=== PATIENT | female | born 1940 | race Caucasian/White ===

== ENCOUNTER → 2019-12-19 09:14 | Outpatient (BNVA) | payer MEDICARE, OTHER, SELFPAY | PROVIDERS: Family Provider Family Medicine; PCP Family Medicine; Visit Provider Otolaryngology | DX: C44.90 Unspecified malignant neoplasm of skin, unspecified (principal); J34.89 Other specified disorders of nose and nasal sinuses | CPT/HCPCS: 99204; 99214 ==

== ENCOUNTER 2020-08-26 13:02 | Outpatient (CLI) | payer MEDICARE, OTHER, SELFPAY ==
--- NOTE | 2020-08-26 14:15 | USCV_ITS ---
ClydeValencia michaels Age: 80 Gender: F : 1940 Exam Date: 08/26/2020 13:15 Ordering Phys: Allan Molina MD (Andy) ([email or web address] [email or web address]) Technologist: Brayden Pavon [place] [facility] [place]: [place] Risk Factors: Previous Vascular Surgery: Right Brachial BP: / Left Brachial BP: / Right Left Velocity (cm/s) Spectral Plaque Velocity (cm/s) Spectral Plaque Syst/Diast Broadening Syst/Diast Broadening 85.90/ 11.60 Prox CCA 99.40 / 13.20 89.30/ 13.20 Mid CCA 113.40/ 20.20 69.50/ 15.40 Distal CCA 73.50 / 12.80 73.80/ 19.70 Prox ICA 111.30/ 25.20 100.30/24.90 Mid ICA 153.00/ 35.20 61.80/ 25.70 Distal ICA 134.10/ 27.10 203.60 ECA 85.30 1.12 ICA/CCA 1.35 Antegrade Vertebral Antegrade 43.70/ 6.90 cm/s 98.90/ 23.00 cm/s Tri Subclavian Bi 120.2 119.1 0 0 FINDINGS Comparison: none available. Diffuse bilateral scattered calcified plaque and intimal thickening throughout the common carotid arteries and extending through the bifurcation. Mild elevation of velocities and irregualar plaque in the bifurcations. Antegrade vertebral arteries. CONCLUSIONS Bilateral ICA stenosis less than 50%. Mild atherosclerosis most significant at the bifurcation. Dr. Angelic Nunez DO (Electronically Signed) Final Date: 26 August 2020 14:29 S
== END 2020-08-26 13:03 | disposition home or self-care (01) ==
LOC: RAD 13:04
PROVIDERS: PCP Family Medicine; Visit Provider Thoracic Surgery (Cardiothoracic Vascular Surgery)
DX: G45.9 Transient cerebral ischemic attack, unspecified (principal); I70.90 Unspecified atherosclerosis
CPT/HCPCS: 93880

== ENCOUNTER → 2020-12-05 10:30 | Outpatient (BNVA) | payer MEDICARE, OTHER, SELFPAY | PROVIDERS: PCP Family Medicine; Visit Provider Family Medicine | DX: E11.9 Type 2 diabetes mellitus without complications (principal); I10 Essential (primary) hypertension | CPT/HCPCS: 80053; 81015; 82043; 83036; 85025 ==

== ENCOUNTER → 2021-01-02 09:43 | Outpatient (BNVA) | payer MEDICARE, OTHER, SELFPAY | PROVIDERS: PCP Family Medicine; Visit Provider Family Medicine | DX: E78.5 Hyperlipidemia, unspecified (principal) | CPT/HCPCS: 80061 ==

== ENCOUNTER → 2021-01-30 09:03 | Outpatient (BNVA) | payer MEDICARE, OTHER, SELFPAY | PROVIDERS: PCP Family Medicine; Visit Provider Family Medicine | DX: E11.22 Type 2 diabetes mellitus with diabetic chronic kidney disease (principal) | CPT/HCPCS: 80048 ==

== ENCOUNTER → 2021-05-08 08:40 | Outpatient (BNVA) | payer MEDICARE, OTHER, SELFPAY | PROVIDERS: PCP Family Medicine; Visit Provider Family Medicine | DX: E11.22 Type 2 diabetes mellitus with diabetic chronic kidney disease (principal); N18.4 Chronic kidney disease, stage 4 (severe) | CPT/HCPCS: 80053; 83036 ==

== ENCOUNTER → 2021-08-07 09:08 | Outpatient (BNVA) | payer MEDICARE, OTHER, SELFPAY | PROVIDERS: PCP Family Medicine; Visit Provider Family Medicine | DX: E11.22 Type 2 diabetes mellitus with diabetic chronic kidney disease (principal); I12.9 Hypertensive chronic kidney disease with stage 1 through stage 4 chronic kidney disease, or unspecified chronic kidney disease; N18.4 Chronic kidney disease, stage 4 (severe); E78.5 Hyperlipidemia, unspecified; K21.9 Gastro-esophageal reflux disease without esophagitis | CPT/HCPCS: 80053; 83036 ==

== ENCOUNTER 2021-12-03 10:17 | Emergency (ER) | payer MEDICARE, OTHER, SELFPAY ==
[2021-12-03 10:38] VITALS: BP 165/79; PULSE 72; RESP 16; TEMP 36.6; O2SAT 97; BMI 26.5
[2021-12-03 10:44] VITALS: BP 179/74; PULSE 68; RESP 16; O2SAT 100
--- NOTE | 2021-12-03 11:04 | CT_ITS ---
WS: [id number] CT CERVICAL SPINE HISTORY: fall TECHNIQUE: Contiguous 2.5 mm axial imaging performed through the entire cervical spine. Sagittal and coronal reformats also performed. All CT scans at [facility] use at least one of these dose o ptimization techniques: automated exposure control; mA and/or kV adjustment per patient size (include s targeted exams where dose is matched to clinical indication); or iterative reconstruction. DLP: 365.26 mGy.cm COMPARISON: None available. Mild straightening and curvature of the normal cervical lordosis. Moderate degenerative disc space na rrowing and desiccation at C5-6 and C6-7. Facet joints are narrowed. There is bony fusion across the RIGHT C2-3 facet joint. Craniocervical junction is normal. The odontoid process is intact. No acute fractures. C2-C3: Normal. C3-C4: Central disc protrusion and mild facet arthritis. C4-C5: Mild osteophytic ridging and mild bilateral foraminal narrowing. C5-C6: Mild osteophytic ridging encroaching upon the ventral thecal sac on the LEFT. Mild bilateral f oraminal narrowing, LEFT greater than RIGHT. C6-C7: Osteophytic ridging encroaching upon the ventral thecal sac with mild foraminal stenosis. C7-T1: Normal. Lung apices are clear. Moderate calcification in the cervical carotid arteries. Suspect component of cervical carotid artery stenosis due to the calcified plaque. Additional increased plaque formation a t the origin of the RIGHT subclavian artery. CT/CT cervical spin wo con* [id number] IMPRESSION: 1. No acute cervical spine fracture. 2. Multilevel areas of foraminal stenosis predominantly due to osteophyte dise ase. 3. Heavy calcific burden in the cervical carotid arteries and involving the pr oximal RIGHT subclavian artery. Recommend follow-up carotid ultrasound evaluati on on an outpatient basis.
--- NOTE | 2021-12-03 11:04 | XR_ITS ---
WS: [email or web address] Exam: XR ribs LT mn 3V w CXR1V [id number] Date/Time of Exam: 12/03/2021 11:37 AM Reason For Exam: fall No acute left rib fracture or pneumothorax. No pleural or pulmonary reactive changes. The lungs are b ilaterally clear. Normal cardiomediastinal silhouette. XR/XR ribs LT mn 3V w CXR1V [id number] IMPRESSION: 1. No acute left rib fracture or pneumothorax.
--- NOTE | 2021-12-03 11:04 | CT_ITS ---
WS: [id number] CT HEAD NONCONTRAST HISTORY: syncope, fall TECHNIQUE: Contiguous axial imaging performed through the brain in 2.5 mm imaging. Bone and soft tiss ue windows. Sagittal and coronal reformats reviewed. All CT scans at [facility] use at least one of these dose optimization techniques: automated exposure control; mA and/or kV adjustment per pa tient size (includes targeted exams where dose is matched to clinical indication); or iterative recon struction. DLP: 836.83 mGy.cm COMPARISON: 03/13/2011 No acute intracranial hemorrhage, midline shift or mass effect. Mild bifrontal atrophy. Very minimal chronic microvascular ischemic type changes. There are a few cor tical calcifications scattered throughout the brain which are probably related to aging. No mass effe ct. Ventricles: Normal size with no hydrocephalus. No inferior displacement of the cerebellar tonsils. Paranasal sinuses: As visualized are clear. Mastoid air cells: Well pneumatized. Calvarium and scalp: Hyperostosis frontalis interna. No skull fracture. Small scalp hematoma towards the vertex. CT/CT head wo con* [id number] IMPRESSION: 1. No acute intracranial hemorrhage or edema. 2. Mild bifrontal atrophy.
--- NOTE | 2021-12-03 11:05 | ED_ITS ---
Documented by User: TAWANDA Green 12/03/21 13:34 HPI - Syncope General: Chief Complaint: Syncope Stated Complaint: random passing out hit head. Time Seen by Provider: 12/03/21 10:19 Source: patient and family Mode of arrival: wheelchair Limitations: no limitations History of Present Illness: Patient is a nice 81-year-old female presents to ED today along with her for evaluation following a syncopal episode. Patient has had these episodes starting roughly around July 2020. She has seen cardiology several times for these. She has had carotid US performed which showed stenosis of less than 50%. Patient states her episodes do not seem to be related to changes in position or exertion. She states loss of consciousness is usually for a few seconds. She states this morning blood sugars were 114. Blood pressure was 169/51. Patient states she does not get lightheaded or dizzy prior to her syncopal episodes. She does not experience chest pain, shortness of breath, or palpitations. Patient states during her syncopal episode today she struck the back of her head and her left ribs and would like these evaluated today. She tells me cardiology at one point talk to her about a stress test/echocardiogram but states these have not been completed yet. MD complaint: loss of consciousness Onset (ago): hour(s) Duration of episode: 10 -: second(s) Prodromal symptoms: none Witnessed: Yes - by Bystander () Context: at rest Associated symptoms: Reports no associated symptoms, chest pain (L posterior rib pain) and headache(s); Deny abdominal pain, fever(s), lightheadedness, nausea or vertigo Treatments prior to arrival: none Review of Systems Const: Denies: fever(s), chills, body aches, fatigue or malaise Eyes: Denies: change in vision or blurry vision Card: Reports: chest pain (L posterior rib pain), syncope and pre-syncope; Denies: palpitations, irregular heart rhythm, edema, swelling of feet/ankles, lightheadedness, dyspnea on exertion, orthopnea, leg pain with exertion or acrocyanosis Resp: Denies: dyspnea, productive cough, non-productive cough, wheezing, pain on inspiration, hemoptysis or chest congestion GI: Denies: abdominal pain, nausea, vomiting, heartburn or diarrhea : Denies: flank pain or dysuria Musc: Denies: neck pain, back pain, extremity pain or joint pain Skin/Breast: Denies: rash Neuro: Reports: headache(s); Denies: numbness in extremities, sensory changes, dizziness, vertigo, confusion, behavioral changes, Slurred speech present or difficulty communicating thoughts PFSH ED PFSH: Medical History CKD (chronic kidney disease), stage IV Coronary artery disease Dyslipidemia Essential hypertension GERD (gastroesophageal reflux disease) Nasal lesion Shortness of breath Type 2 diabetes mellitus, without long-term current use of insulin Surgical History H/O eye surgery H/O heart artery stent H/O tubal ligation Family History Other Arthritis CAD (coronary artery disease) Diabetes Social History Smoking and tobacco status: never smoked Alcohol intake: never Physical Exam Const: COMMON NORMALS: no acute distress, average body habitus, patient oriented x3, no limitations, healthy appearing, alert and well nourished GENERAL APPEARANCE: cooperative ORIENTATION/CONSCIOUSNESS: Yes awake, Yes oriented to person, Yes oriented to place and Yes oriented to time HENMT: COMMON NORMALS: normocephalic HEAD & SCALP: normal to inspection, normocephalic and hematoma vertex FACE & SINUS: normal facial exam Eye: GENERAL EYE: appearance normal, both eyes and all related structures Neck/C-Spine: COMMON NORMALS: full ROM CERVICAL SPINE: Yes cervical ROM normal, No Cervical spine tenderness, No step off deformity and Yes Paracervical muscle tenderness left Chest: COMMONS NORMALS: normal inspection of the chest OTHER: mild TTP L posterior ribs; no crepitus noted Resp: COMMON NORMALS: normal respiratory effort and clear to auscultation bilaterally AUSCULTATION: clear to auscultation bilaterally Cardio: COMMON NORMALS: regular rate and regular rhythm RATE: regular rate RHYTHM: regular rhythm GI: COMMON NORMALS: Normal to inspection, nondistended, normoactive bowel benito nds present, Soft to palpation, non-tender, No hepatosplenomegaly present and no masses PALPATION: Yes Soft to palpation and Yes No hepatosplenomegaly present Back/Pelvis: COMMON NORMALS: thoracic and lumbar spine normal to inspection, no thoracic nor lumbar tenderness and thoraco-lumbar ROM normal Extremity: COMMON NORMALS: normal to inspection and full ROM GENERAL: Yes normal exam except as noted Neuro: ISIDORO COMA SCALE: document GCS findings [place] coma scale eye opening: Spontaneous [place] coma scale verbal response: Orientated [place] coma scale motor response: Obey commands Isidoro coma scale total score: 15 COMMON NORMALS: patient oriented x3, CN's II-XII intact bilaterally, moves all extremities, no focal motor deficits, no sensory deficits noted and gait normal SENSORIUM/ORIENTATION: Yes alert, Yes oriented to person, Yes oriented to place and Yes oriented to time MOTOR EXAM: 5/5 motor strength present throughout Skin: COMMON NORMALS: no rashes or lesions noted GENERAL SKIN EXAM: no rashes or lesions noted TRAUMA: no lacerations or abrasions Course Vital Signs: Vital signs: Vital Signs Temperature 97.9 F 12/03/21 10:38 Pulse Rate 67 12/03/21 13:34 Respiratory Rate 18 12/03/21 13:34 Blood Pressure 168/79 12/03/21 13:34 Pulse Oximetry 95 12/03/21 13:34 MDM - Syncope Medical Decision Making Patient is a nice 81-year-old female who presents to ED today for evaluation following an episode of syncope. Patient has had multiple episodes of syncope starting back in July 2020. Her symptoms are not preceded by lightheadedness or dizziness nor does she ever experience chest pain, shortness of breath, or palpitations. Patient states she struck her head and her left ribs on her fall today. Imaging of these areas are negative. Radiologist did comment on heavy calcific burden in her cervical carotid arteries on her CT cervical scan. Patient had US carotids last performed 08/2020 that showed stenosis of less than 50%. Patient's vital signs are normal here. Labs are unremarkable. Mild elevations to her BUN/Cr that are chronic. She had a baseline troponin of 16 with a negative delta. EKG without ischemic changes or arrhythmia. UA got reported as gross hematuria however this was a confirmed mixup with lab. Patient states her urine has been normal/clear and she has no urinary complaints at this time. She was able to give another urine sample but does not want to wait for results. It is currently sleeting/icing outside and she wants to get home. I told patient I would call her if repeat results come back abnormal. Will place information with case management to get her set up with an appointment with Dr. Molina to order repeat carotid US if indicated/necessary. Strict return to ED precautions verbally given to patient and her . Lab Data : 12/03/21 11:08 12/03/21 11:08 Radiology Impressions Cervical Spine CT 12/03/21 11:04 IMPRESSION: 1. No acute cervical spine fracture. 2. Multilevel areas of foraminal stenosis predominantly due to osteophyte disease. 3. Heavy calcific burden in the cervical carotid arteries and involving the proximal RIGHT subclavian artery. Recommend follow-up carotid ultrasound evaluation on an outpatient basis. Head CT 12/03/21 11:04 IMPRESSION: 1. No acute intracranial hemorrhage or edema. 2. Mild bifrontal atrophy. Ribs X-Ray 12/03/21 11:04 IMPRESSION: 1. No acute left rib fracture or pneumothorax. Laboratory Results WBC 10.6 10^3/uL (4.0-10.0) H 12/03/21 11:08 RBC 4.30 10^6/uL (4.1-5.3) 12/03/21 11:08 Hgb 12.7 g/dL (11.5-15.3) 12/03/21 11:08 Hct 38.8 % (37.0-47.0) 12/03/21 11:08 MCV 90.2 fl (81-99) 12/03/21 11:08 MCH 29.5 pg (28.0-34.0) 12/03/21 11:08 MCHC 32.7 g/dL (30.0-36.0) 12/03/21 11:08 RDW 12.8 % (12.1-15.1) 12/03/21 11:08 Plt Count 247 10^3/cmm (130-400) 12/03/21 11:08 MPV 9.3 fL (7.4-10.4) 12/03/21 11:08 Neut % (Auto) 73.5 % 12/03/21 11:08 Lymph % (Auto) 20.2 % 12/03/21 11:08 [place] % (Auto) 5.2 % 12/03/21 11:08 Eos % (Auto) 0.4 % 12/03/21 11:08 Baso % (Auto) 0.3 % 12/03/21 11:08 Neut # (Auto) 7.82 10^3/uL (1.8-7.7) H 12/03/21 11:08 Lymph # (Auto) 2.2 10^3/uL (0.8-4.8) 12/03/21 11:08 [place] # (Auto) 0.6 10^3/uL (0.2-0.9) 12/03/21 11:08 Eos # (Auto) 0.0 10^3/uL (0.0-0.8) 12/03/21 11:08 Baso # (Auto) 0.0 10^3/uL (0.0-0.1) 12/03/21 11:08 Nucleated RBC % (auto) 0 % 12/03/21 11:08 Nucleated RBCs # 0.0 /100WBC 12/03/21 11:08 Sodium 139 mmol/L (136-145) 12/03/21 11:08 Potassium 4.4 mmol/L (3.5-5.1) 12/03/21 11:08 Chloride 104 mmol/L (98-107) 12/03/21 11:08 Carbon Dioxide 24 mmol/L (22-29) 12/03/21 11:08 Anion Gap 15.4 (5-19) 12/03/21 11:08 BUN 40 mg/dL (8-23) H 12/03/21 11:08 Creatinine 1.4 mg/dL (0.5-0.9) H 12/03/21 11:08 GFR Calculation Not Reportable 12/03/21 11:08 Glucose 154 mg/dL (65-115) H 12/03/21 11:08 Calculated Osmolality 301 mOsm/kg (285-295) H 12/03/21 11:08 Calcium 10.0 mg/dL (8.5-10.5) 12/03/21 11:08 Total Bilirubin 0.4 mg/dL (0.15-1.2) 12/03/21 11:08 AST 28 U/L (0-32) 12/03/21 11:08 ALT 26 U/L (0-33) 12/03/21 11:08 Alkaline Phosphatase 91 IU/L (35-105) 12/03/21 11:08 Troponin T Baseline 16 ng/L (0-10) H 12/03/21 11:08 Troponin T 120 Minute 14.87 ng/L (0-10) H 12/03/21 12:51 Delta Troponin T -1.13 ABS# (0-10) L 12/03/21 12:51 Total Protein 8.2 g/dL (6.6-8.7) 12/03/21 11:08 Albumin 4.8 g/dL (3.5-5.2) 12/03/21 11:08 Globulin 3.4 g/dL (1.3-4.6) 12/03/21 11:08 Urine Color Yellow (Yellow) 12/03/21 12:15 Urine Appearance Clear (CLEAR) 12/03/21 12:15 Urine pH 5 (5-7) 12/03/21 12:15 Ur Specific [place] 1.010 (1.005-1.030) 12/03/21 12:15 Urine Protein Neg (Negative) 12/03/21 12:15 Urine Glucose (UA) Norm (Normal) 12/03/21 12:15 Urine Ketones Negative (Negative) 12/03/21 12:15 Urine Blood Neg (Negative) 12/03/21 12:15 Urine Nitrate Negative (Negative) 12/03/21 12:15 Urine Bilirubin Neg (Negative) 12/03/21 12:15 Urine Urobilinogen Neg mg/dL (Negative) 12/03/21 12:15 Ur Leukocyte Esterase Negative (Negative) 12/03/21 12:15 Urine RBC Cancelled 12/03/21 12:15 Urine WBC Cancelled 12/03/21 12:15 Ur Squamous Epith Cells Cancelled 12/03/21 12:15 Ur Transition Epith Cell Cancelled 12/03/21 12:15 Ur Renal Epithelial Cell Cancelled 12/03/21 12:15 Calcium Oxalate Crystal Cancelled 12/03/21 12:15 Uric Acid Crystals Cancelled 12/03/21 12:15 Triple Phos Crystals Cancelled 12/03/21 12:15 Other Crystals Cancelled 12/03/21 12:15 Amorphous Sediment Cancelled 12/03/21 12:15 Urine Bacteria Cancelled 12/03/21 12:15 Hyaline Casts Cancelled 12/03/21 12:15 Fine Granular Casts Cancelled 12/03/21 12:15 Coarse Granular Casts Cancelled 12/03/21 12:15 RBC Casts Cancelled 12/03/21 12:15 Other Casts Cancelled 12/03/21 12:15 Urine Mucus Cancelled 12/03/21 12:15 Urine Trichomonas Cancelled 12/03/21 12:15 Urine Yeast Cancelled 12/03/21 12:15 Urine Sperm Cancelled 12/03/21 12:15 Ur Oval Fat Bodies Cancelled 12/03/21 12:15 Discharge Plan Discharge Patient Disposition: Home Clinical Impression: Recurrent syncope Carotid artery calcification Qualifiers: Laterality: unspecified laterality Qualified Code(s): I65.29 - Occlusion and stenosis of unspecified carotid artery Hematoma of scalp Qualifiers: Encounter type: initial encounter Qualified Code(s): S00.03XA - Contusion of scalp, initial encounter Contusion of rib on left side Qualifiers: Encounter type: initial encounter Qualified Code(s): S20.212A - Contusion of le ft front wall of thorax, initial encounter Condition: Stable Prescriptions: No Action hydralazine 25 mg tablet 75 mg PO DIRECTED Qty: 270 1RF Rx Instructions: Take 50mg (2 tabs) in the AM and 25mg (1 tab) in PM metoprolol succinate 50 mg tablet extended release 24 hr See Rx Instructions .ROUTE .COMPLEX Qty: 90 1RF Dose Instruction: TAKE 1 TABLET BY MOUTH EVERY DAY Rx Instructions: TAKE 1 TABLET BY MOUTH EVERY DAY nifedipine 30 mg tablet extended release 30 mg PO DAILY Qty: 90 1RF isosorbide mononitrate 30 mg tablet extended release 24 hr 15 mg PO DAILY Qty: 45 0RF pantoprazole 40 mg tablet,delayed release (DR/EC) See Rx Instructions .ROUTE .COMPLEX Qty: 90 0RF Dose Instruction: TAKE 1 TABLET BY MOUTH EVERY DAY Rx Instructions: TAKE 1 TABLET BY MOUTH EVERY DAY simvastatin 40 mg tablet See Rx Instructions .ROUTE .COMPLEX Qty: 90 1RF Dose Instruction: TAKE 1 TABLET BY MOUTH EVERY DAY Rx Instructions: TAKE 1 TABLET BY MOUTH EVERY DAY Discharge Orders: Discharge ED (Routine); Ordered 12/03/21 Ordered By: Yazmin Mejia Referrals: Gilda Caicedo DO [Primary Care Provider] - Activity Restrictions/Additional Instructions: As we discussed case management should contact you in the next few days to set you up with an appointment with Dr. Molina to have a repeat carotid ultrasound performed. You need to return to the emergency department for chest pain, shortness of breath, difficulty breathing, palpitations, severe lightheadedness/dizziness, or further passing out episodes. Coding Level of Care Code ED Senior Sql Developer for Chg Fwd Exam Comprehensive Documented by User: Mauricio Rincon DO 12/03/21 15:58 HPI - Syncope General: Chief Complaint: Syncope Stated Complaint: random passing out hit head. Time Seen by Provider: 12/03/21 10:19 PFSH ED PFSH: Medical History CKD (chronic kidney disease), stage IV Coronary artery disease Dyslipidemia Essential hypertension GERD (gastroesophageal reflux disease) Nasal lesion Shortness of breath Type 2 diabetes mellitus, without long-term current use of insulin Surgical History H/O eye surgery H/O heart artery stent H/O tubal ligation Family History Other Arthritis CAD (coronary artery disease) Diabetes Social History Smoking and tobacco status: never smoked Alcohol intake: never Physical Exam Neuro: ISIDORO COMA SCALE: document GCS findings [place] coma scale total score: 15 Course Vital Signs: Vital signs: Vital Signs Temperature 97.9 F 12/03/21 10:38 Pulse Rate 67 12/03/21 13:34 Respiratory Rate 18 12/03/21 13:34 Blood Pressure 168/79 12/03/21 13:34 Pulse Oximetry 95 12/03/21 13:34 MDM - Syncope Medical Decision Making Patient is a nice 81-year-old female who presents to ED today for evaluation following an episode of syncope. Patient has had multiple episodes of syncope starting back in July 2020. Her symptoms are not preceded by lightheadedness or dizziness nor does she ever experience chest pain, shortness of breath, or palpitations. Patient states she struck her head and her left ribs on her fall today. Imaging of these areas are negative. Radiologist did comment on heavy calcific burden in her cervical carotid arteries on her CT cervical scan. Patient had US carotids last performed 08/2020 that showed stenosis of less than 50%. Patient's vital signs are normal here. Labs are unremarkable. Mild elevations to her BUN/Cr that are chronic. She had a baseline troponin of 16 with a negative delta. EKG without ischemic changes or arrhythmia. UA got reported as gross hematuria however this was a confirmed mixup with lab. Patient states her urine has been normal/clear and she has no urinary complaints at this time. She was able to give another urine sample but does not want to wait for results. It is currently sleeting/icing outside and she wants to get home. I told patient I would call her if repeat results come back abnormal. Will place information with case management to get her set up with an appointment with Dr. Molina to order repeat carotid US if indicated/necessary. Strict return to ED precautions verbally given to patient and her . Chart reviewed and patient discussed with midlevel. Agree with assessment and plan. Lab Data : 12/03/21 11:08 12/03/21 11:08 Radiology Impressions Cervical Spine CT 12/03/21 11:04 IMPRESSION: 1. No acute cervical spine fracture. 2. Multilevel areas of foraminal stenosis predominantly due to osteophyte disease. 3. Heavy calcific burden in the cervical carotid arteries and involving the proximal RIGHT subclavian artery. Recommend follow-up carotid ultrasound evaluation on an outpatient basis. Head CT 12/03/21 11:04 IMPRESSION: 1. No acute intracranial hemorrhage or edema. 2. Mild bifrontal atrophy. Ribs X-Ray 12/03/21 11:04 IMPRESSION: 1. No acute left rib fracture or pneumothorax. Laboratory Results WBC 10.6 10^3/uL (4.0-10.0) H 12/03/21 11:08 RBC 4.30 10^6/uL (4.1-5.3) 12/03/21 11:08 Hgb 12.7 g/dL (11.5-15.3) 12/03/21 11:08 Hct 38.8 % (37.0-47.0) 12/03/21 11:08 MCV 90.2 fl (81-99) 12/03/21 11:08 MCH 29.5 pg (28.0-34.0) 12/03/21 11:08 MCHC 32.7 g/dL (30.0-36.0) 12/03/21 11:08 RDW 12.8 % (12.1-15.1) 12/03/21 11:08 Plt Count 247 10^3/cmm (130-400) 12/03/21 11:08 MPV 9.3 fL (7.4-10.4) 12/03/21 11:08 Neut % (Auto) 73.5 % 12/03/21 11:08 Lymph % (Auto) 20.2 % 12/03/21 11:08 [place] % (Auto) 5.2 % 12/03/21 11:08 Eos % (Auto) 0.4 % 12/03/21 11:08 Baso % (Auto) 0.3 % 12/03/21 11:08 Neut # (Auto) 7.82 10^3/uL (1.8-7.7) H 12/03/21 11:08 Lymph # (Auto) 2.2 10^3/uL (0.8-4.8) 12/03/21 11:08 [place] # (Auto) 0.6 10^3/uL (0.2-0.9) 12/03/21 11:08 Eos # (Auto) 0.0 10^3/uL (0.0-0.8) 12/03/21 11:08 Baso # (Auto) 0.0 10^3/uL (0.0-0.1) 12/03/21 11:08 Nucleated RBC % (auto) 0 % 12/03/21 11:08 Nucleated RBCs # 0.0 /100WBC 12/03/21 11:08 Sodium 139 mmol/L (136-145) 12/03/21 11:08 Potassium 4.4 mmol/L (3.5-5.1) 12/03/21 11:08 Chloride 104 mmol/L (98-107) 12/03/21 11:08 Carbon Dioxide 24 mmol/L (22-29) 12/03/21 11:08 Anion Gap 15.4 (5-19) 12/03/21 11:08 BUN 40 mg/dL (8-23) H 12/03/21 11:08 Creatinine 1.4 mg/dL (0.5-0.9) H 12/03/21 11:08 GFR Calculation Not Reportable 12/03/21 11:08 Glucose 154 mg/dL (65-115) H 12/03/21 11:08 Calculated Osmolality 301 mOsm/kg (285-295) H 12/03/21 11:08 Calcium 10.0 mg/dL (8.5-10.5) 12/03/21 11:08 Total Bilirubin 0.4 mg/dL (0.15-1.2) 12/03/21 11:08 AST 28 U/L (0-32) 12/03/21 11:08 ALT 26 U/L (0-33) 12/03/21 11:08 Alkaline Phosphatase 91 IU/L (35-105) 12/03/21 11:08 Troponin T Baseline 16 ng/L (0-10) H 12/03/21 11:08 Troponin T 120 Minute 14.87 ng/L (0-10) H 12/03/21 12:51 Delta Troponin T -1.13 ABS# (0-10) L 12/03/21 12:51 Total Protein 8.2 g/dL (6.6-8.7) 12/03/21 11:08 Albumin 4.8 g/dL (3.5-5.2) 12/03/21 11:08 Globulin 3.4 g/dL (1.3-4.6) 12/03/21 11:08 Urine Color Yellow (Yellow) 12/03/21 12:15 Urine Appearance Clear (CLEAR) 12/03/21 12:15 Urine pH 5 (5-7) 12/03/21 12:15 Ur Specific [place] 1.010 (1.005-1.030) 12/03/21 12:15 Urine Protein Neg (Negative) 12/03/21 12:15 Urine Glucose (UA) Norm (Normal) 12/03/21 12:15 Urine Ketones Negative (Negative) 12/03/21 12:15 Urine Blood Neg (Negative) 12/03/21 12:15 Urine Nitrate Negative (Negative) 12/03/21 12:15 Urine Bilirubin Neg (Negative) 12/03/21 12:15 Urine Urobilinogen Neg mg/dL (Negative) 12/03/21 12:15 Ur Leukocyte Esterase Negative (Negative) 12/03/21 12:15 Urine RBC Cancelled 12/03/21 12:15 Urine WBC Cancelled 12/03/21 12:15 Ur Squamous Epith Cells Cancelled 12/03/21 12:15 Ur Transition Epith Cell Cancelled 12/03/21 12:15 Ur Renal Epithelial Cell Cancelled 12/03/21 12:15 Calcium Oxalate Crystal Cancelled 12/03/21 12:15 Uric Acid Crystals Cancelled 12/03/21 12:15 Triple Phos Crystals Cancelled 12/03/21 12:15 Other Crystals Cancelled 12/03/21 12:15 Amorphous Sediment Cancelled 12/03/21 12:15 Urine Bacteria Cancelled 12/03/21 12:15 Hyaline Casts Cancelled 12/03/21 12:15 Fine Granular Casts Cancelled 12/03/21 12:15 Coarse Granular Casts Cancelled 12/03/21 12:15 RBC Casts Cancelled 12/03/21 12:15 Other Casts Cancelled 12/03/21 12:15 Urine Mucus Cancelled 12/03/21 12:15 Urine Trichomonas Cancelled 12/03/21 12:15 Urine Yeast Cancelled 12/03/21 12:15 Urine Sperm Cancelled 12/03/21 12:15 Ur Oval Fat Bodies Cancelled 12/03/21 12:15 Discharge Plan Discharge Patient Disposition: Home Clinical Impression: Recurrent syncope Carotid artery calcification Qualifiers: Laterality: unspecified laterality Qualified Code(s): I65.29 - Occlusion and stenosis of unspecified carotid artery Hematoma of scalp Qualifiers: Encounter type: initial encounter Qualified Code(s): S00.03XA - Contusion of scalp, initial encounter Contusion of rib on left side Qualifiers: Encounter type: initial encounter Qualified Code(s): S20.212A - Contusion of left front wall of thorax, initial encounter Condition: Stable Prescriptions: No Action hydralazine 25 mg tablet 75 mg PO DIRECTED Qty: 270 1RF Rx Instructions: Take 50mg (2 tabs) in the AM and 25mg (1 tab) in PM metoprolol succinate 50 mg tablet extended release 24 hr See Rx Instructions .ROUTE .COMPLEX Qty: 90 1RF Dose Instruction: TAKE 1 TABLET BY MOUTH EVERY DAY Rx Instructions: TAKE 1 TABLET BY MOUTH EVERY DAY nifedipine 30 mg tablet extended release 30 mg PO DAILY Qty: 90 1RF isosorbide mononitrate 30 mg tablet extended release 24 hr 15 mg PO DAILY Qty: 45 0RF pantoprazole 40 mg tablet,delayed release (DR/EC) See Rx Instructions .ROUTE .COMPLEX Qty: 90 0RF Dose Instruction: TAKE 1 TABLET BY MOUTH EVERY DAY Rx Instructions: TAKE 1 TABLET BY MOUTH EVERY DAY simvastatin 40 mg tablet See Rx Instructions .ROUTE .COMPLEX Qty: 90 1RF Dose Instruction: TAKE 1 TABLET BY MOUTH EVERY DAY Rx Instructions: TAKE 1 TABLET BY MOUTH EVERY DAY Discharge Orders: Discharge ED (Routine); Ordered 12/03/21 Ordered By: Yazmin Mejia Referrals: Gilda Caicedo DO [Primary Care Provider] - Activity Restrictions/Additional Instructions: As we discussed case management should contact you in the next few days to set you up with an appointment with Dr. Molina to have a repeat carotid ultrasound performed. You need to return to the emergency department for chest pain, shortness of breath, difficulty breathing, palpitations, severe lightheadedness/dizziness, or further passing out episodes. Coding Level of Care Code ED Senior Sql Developer for Anahy Fwluis miguel Exam Comprehensive
[2021-12-03 11:21] LABS: Basophils % 0.3 %; Eosinophils % 0.4 %; Hematocrit 38.8 % (37.0-47.0); Hemoglobin 12.7 g/dL (11.5-15.3); Lymphocytes # 2.2 10^3/uL (0.8-4.8); Lymphocytes % 20.2 %; Mean Corpuscular HGB Conc 32.7 g/dL (30.0-36.0); Mean Corpuscular Hemoglobin 29.5 pg (28.0-34.0); Mean Corpuscular Volume 90.2 fl (81-99); Mean Platelet Volume 9.3 fL (7.4-10.4); Monocytes # 0.6 10^3/uL (0.2-0.9); Monocytes % 5.2 %; Neutrophils # 7.82 10^3/uL (1.8-7.7); Neutrophils % 73.5 %; Nucleated Red Blood Cells % 0 %; Platelet Count 247 10^3/cmm (130-400); Red Cell Distribution Width 12.8 % (12.1-15.1); White Blood Count 10.6 10^3/uL (4.0-10.0)
[2021-12-03 11:44] LABS: Troponin(5th) Baseline 16 ng/L (0-10)
[2021-12-03 11:45] LABS: Alanine Aminotransferase 26 U/L (0-33); Albumin Level 4.8 g/dL (3.5-5.2); Alkaline Phosphatase 91 IU/L (35-105); Anion Gap 15.4 (5-19); Aspartate Amino Transferase 28 U/L (0-32); Blood Urea Nitrogen 40 mg/dL (8-23); Carbon Dioxide 24 mmol/L (22-29); Chloride 104 mmol/L (98-107); Globulin 3.4 g/dL (1.3-4.6); Glucose 154 mg/dL (65-115); Osmolality Calculated 301 mOsm/kg (285-295); Potassium 4.4 mmol/L (3.5-5.1); Sodium 139 mmol/L (136-145); Total Bilirubin 0.4 mg/dL (0.15-1.2); Total Protein 8.2 g/dL (6.6-8.7)
--- NOTE | 2021-12-03 12:45 | ECG_ITS ---
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 Measurements Intervals [place] Rate: 59 P: 53 [place]: 154 QRS: 62 QRSD: 98 T: 60 QT: 432 QTc: 431 Interpretive Statements SINUS BRADYCARDIA No previous ECG available for comparison Electronically Signed On 12-03-2021 20:12:17 CARGO SERVICES COORDINATOR by Juanjo Dooley M.D. [id number]
[2021-12-03 12:49] LABS: Glucose Urine UA Norm (Normal); Ketones Urine Negative (Negative); pH Urine 5 (5-7)
[2021-12-03 12:50] LABS: Bilirubin Urine Neg (Negative); Leukocyte Esterase Urine Negative (Negative); Nitrate Urine Negative (Negative); Urobilinogen Urine Neg (Negative)
[2021-12-03 13:16] LABS: Troponin 5 2HR 14.87 ng/L (0-10)
[2021-12-03 13:20] LABS: Troponin 5 2HR Delta -1.13 ABS# (0-10)
[2021-12-03 13:31] LABS: Urine Appearance Clear (CLEAR)
[2021-12-03 13:32] LABS: Add Urine Microscopic? NO; Blood Urine Neg (Negative)
[2021-12-03 13:33] LABS: Urine Color Yellow (Yellow)
[2021-12-03 13:34] VITALS: BP 168/79; PULSE 67; RESP 18; O2SAT 95
[2021-12-03 13:35] LABS: Protein Urine Neg (Negative)
--- NOTE | 2021-12-08 15:32 | DCPLANNER ---
Addendum entered by Polly Alfredo 12/31/21 14:20: Patient had a follow up appointment scheduled for 12.18.[address] Molina at [facility] - patient did attend appointment. Original Note: insurance risk manager had message to schedule a follow up appointment for patient with [facility]. insurance risk manager called [facility], spoke with Penny, gave clinic patients information. A follow up appointment was scheduled for December at 2:[address] Molina. insurance risk manager called patient and gave patient the appointment information.
== END 2021-12-03 13:38 | disposition home or self-care (01) ==
PROVIDERS: Emergency Provider Physician Assistant; PCP Family Medicine
DX: R55 Syncope and collapse (principal); I65.29 Occlusion and stenosis of unspecified carotid artery; S00.03XA Contusion of scalp, initial encounter; S20.212A Contusion of left front wall of thorax, initial encounter; I12.9 Hypertensive chronic kidney disease with stage 1 through stage 4 chronic kidney disease, or unspecified chronic kidney disease; E11.22 Type 2 diabetes mellitus with diabetic chronic kidney disease; N18.4 Chronic kidney disease, stage 4 (severe); I25.10 Atherosclerotic heart disease of native coronary artery without angina pectoris; E78.5 Hyperlipidemia, unspecified; W18.30XA Fall on same level, unspecified, initial encounter
CPT/HCPCS: 36415; 70450; 71101; 72125; 80053; 84484; 85025; 93005; 99283

== ENCOUNTER → 2021-12-18 13:43 | Outpatient (BNVA) | payer MEDICARE, OTHER, SELFPAY | PROVIDERS: PCP Family Medicine; Visit Provider Thoracic Surgery (Cardiothoracic Vascular Surgery) | DX: I65.23 Occlusion and stenosis of bilateral carotid arteries (principal); I10 Essential (primary) hypertension; R55 Syncope and collapse; I77.9 Disorder of arteries and arterioles, unspecified; Z87.891 Personal history of nicotine dependence | CPT/HCPCS: 99213; 99214 ==

== ENCOUNTER → 2021-12-25 14:07 | Outpatient (BNVA) | payer MEDICARE, OTHER, SELFPAY | PROVIDERS: PCP Family Medicine; Visit Provider Internal Medicine Cardiovascular Disease | DX: R07.9 Chest pain, unspecified (principal); R55 Syncope and collapse; R06.02 Shortness of breath; E78.5 Hyperlipidemia, unspecified; I12.9 Hypertensive chronic kidney disease with stage 1 through stage 4 chronic kidney disease, or unspecified chronic kidney disease; N18.4 Chronic kidney disease, stage 4 (severe); E11.22 Type 2 diabetes mellitus with diabetic chronic kidney disease; Z87.891 Personal history of nicotine dependence | CPT/HCPCS: 99215 ==

== ENCOUNTER 2022-01-02 09:25 | Outpatient (CLI) | payer MEDICARE, OTHER, SELFPAY ==
[2022-01-02 10:08] VITALS: BMI 27.1
--- NOTE | 2022-01-02 10:09 | ECG_ITS ---
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 Interpretive Statements NAME OF STUDY: LEXISCAN SESTAMIBI STRESS TEST INDICATION: Chest Pain PROCEDURE: At the baseline, the blood pressure was 154/65 mmHg, oxygen saturation 96% with a heart rate of 59 bpm. The electrocardiogram showed normal sinus rhythm, normal axis with normal ST and T's. The Lexiscan was infused over a period of 20 seconds. A total of 0.4 milligrams of Lexiscan was infused. The stress phase was continued for a total of 5 minutes. Heart rate at the end of the stress phase was 77 bpm, oxygen saturation 96% with a blood pressure of 153/64 mmHg. The EKG at the peak infusion revealed sinus rhythm with no significant ST-T wave changes. Sestamibi was injected 20 seconds after the Lexiscan infusion. Blood pressure at the end of the recovery phase was 152/65 mmHg, oxygen saturation 97% with a heart rate of 74 beats per minute. CONCLUSION: 1. No significant EKG changes with the LexiScan infusion. 2. No LexiScan induced chest pain or cardiac arrhythmia. 3. Normal blood pressure and heart rate response. 4. Sestamibi/sestamibi perfusion scan pending; see separate report. Electronically Signed On 01-05-2022 12:57:24 CDT by Melody Nunes M.D. [id number]
--- NOTE | 2022-01-02 10:09 | NMCV_ITS ---
NM cindy perf SPECT r/s* [id number] Valencia Tang Age: 81 Gender: F : 1940 Exam Date: 01/02/2022 11:31 Ordering Phys: Melody Nunes MD ([email or web address]) Technologist: RAMONE Cam Exam Location: [facility] Indications: SHORTNESS OF BREATH STRESS TEST [facility] IMAGE PROTOCOL Rest/Stress 1 Lexiscan Day Radiopharmaceutical Dose (mCi) Administration Site Administered by Rest: Tc-99m 10.9 IV RAMONE Huber Sestamibi Stress:Tc-99m 32.6 IV RAMONE Huber Sestamibi Rest: 02-Jan-2022 60 Discovery 630 Stress: 02-Jan-2022 30 Discovery 630 0.4mg Lexiscan. Images obtained in supine and prone position. SPECT RESULTS Technical Quality: Excellent Raw Data Analysis: Normal Image Corrections: No attenuation or motion correction applied Summed Stress Score: 10 Summed Rest Score: 0 Summed Difference Score: 10 PERFUSION FINDINGS Medium sized perfusion abnormality of mild severity of basal to mid inferolateral, mid to apical inferior, apical lateral and apical eden on supine stress images. Prone stress images with somewhat improved tracer uptake in inferolateral eden. FUNCTIONAL RESULTS (calculated via Gated SPECT) Stress Image LV EF (%): 73 Stress EDV (mL):63 TID: 0.71 Stress ESV (mL):17 FUNCTIONAL FINDINGS: The left ventricle is normal in size. Transient Ischemia Dilatation of 0.71. There is normal left ventricular systolic function. The left ventricular ejection fraction is normal with a value of 73%. There is normal left ventricular wall thickening with no regional wall motion abnormality. Normal end-diastolic end-systolic volumes. IMPRESSIONS 1. Medium sized reversible perfusion abnormality of mild severity of basal to mid inferolateral, mid to apical inferior, apical lateral and apical eden. 2. This may represent small area of ischemia in circumflex/right coronary artery territory. 3. Overall left ventricular systolic function is normal without regional wall motion abnormalities, LVEF=73%. 4. No EKG changes with Lexiscan infusion. Refer to separate report for details. 5. No prior similar studies to compare. Melody Nunes MD (Electronically Signed) Final Date: 05 January 2022 13:55 S
[2022-01-02] MEDS: regadenoson 0.4 Mg/5 ml Syringe IVP (12:12)
[2022-01-02 12:24] VITALS: BP 152/65; PULSE 76
== END 2022-01-02 09:26 | disposition home or self-care (01) ==
LOC: CDL 09:28
PROVIDERS: PCP Family Medicine; Visit Provider Internal Medicine Cardiovascular Disease
DX: R07.9 Chest pain, unspecified (principal)
CPT/HCPCS: 78452; 93017; A9500; J2785

== ENCOUNTER 2022-01-08 05:33 | Outpatient (CLI) | payer MEDICARE, OTHER, SELFPAY ==
[2022-01-05 11:34] LABS: Basophils % 0.4 %; Eosinophils # 0.1 10^3/uL (0.0-0.8); Eosinophils % 1.5 %; Hematocrit 37.2 % (37.0-47.0); Hemoglobin 12.1 g/dL (11.5-15.3); Lymphocytes # 3.2 10^3/uL (0.8-4.8); Lymphocytes % 43.8 %; Mean Corpuscular HGB Conc 32.5 g/dL (30.0-36.0); Mean Corpuscular Hemoglobin 30.3 pg (28.0-34.0); Mean Corpuscular Volume 93.2 fl (81-99); Mean Platelet Volume 10.1 fL (7.4-10.4); Monocytes # 0.5 10^3/uL (0.2-0.9); Monocytes % 7.1 %; Neutrophils # 3.42 10^3/uL (1.8-7.7); Neutrophils % 47.1 %; Nucleated Red Blood Cells % 0 %; Platelet Count 268 10^3/cmm (130-400); Red Blood Count 3.99 10^6/uL (4.1-5.3); Red Cell Distribution Width 12.8 % (12.1-15.1); White Blood Count 7.3 10^3/uL (4.0-10.0)
[2022-01-08 06:34] VITALS: BP 128/63; PULSE 61; RESP 16; TEMP 36.3; O2SAT 97
--- NOTE | 2022-01-08 08:14 | PM.PROC ---
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 Nunes Indication: Recurrent Syncope Brief history: 81 yo woman with recurrent syncope {Multiple syncopal episodes 02/2021, 07/2021 (5 times in 1 day) and then 2-3 weeks later she had another syncopal episode. Last one being in 11/2020}, CKD stage IV, type 2 DM, HTN and GERD.?She gives a history of several syncopal episodes over the past 12 months without prodrome.? She states that she has episodes of complete unconsciousness and has been picked up by her sister and her from the floor.? She complains of confusion upon recovery.? She had a previous event recorder in place from February 18 through March 04 where she had difficulty wearing the recorder. After discussion with patient and family decision was made to proceed with loop recorder implantation. Procedure: Patient was identified and procedure was explained to the patient in detail. Risks and benefits of the procedure were discussed with the patient. Informed consent was obtained. Patient was prepped and draped with STERILE drapes with all aseptic precautions. The patient was anesthetized with 10 mL of lidocaine. A small nelda in the skin was made and REVEAL LINQ LNQ 11, serial number [[id number]] was implanted. Blood loss was less than 10 mL. The skin was secured with Steri-Strips and Tegaderm was applied on top. R-wave amplitude of 0.34 mV was detected. Sensitivity set at 0.025 mV with tachycardia set at 140 bpm and bradycardia detection set at 40 bpm. Programmed to detect longest A. fib. Patient tolerated the procedure pretty well. She was discharged home with plan to follow-up outpatient with our nurse practitioner in 1 week. Coding Level of Care Code Acute Wood Tool Maker for Anahy Carr
[2022-01-08 08:35] VITALS: BP 131/78; PULSE 67; RESP 16; O2SAT 98
[2022-01-08] MEDS: cephALEXin 500 mg Capsule 2000 MG PO (08:38)
== END 2022-01-08 08:40 | disposition home or self-care (01) ==
PROVIDERS: PCP Family Medicine; Visit Provider Internal Medicine Cardiovascular Disease
PROC: (CPT 33285; principal; 2022-01-08 07:00)
DX: R55 Syncope and collapse (principal); R07.9 Chest pain, unspecified; E11.22 Type 2 diabetes mellitus with diabetic chronic kidney disease; I12.9 Hypertensive chronic kidney disease with stage 1 through stage 4 chronic kidney disease, or unspecified chronic kidney disease; N18.4 Chronic kidney disease, stage 4 (severe)
CPT/HCPCS: 33285; 85025; 87798; C1764

== ENCOUNTER → 2022-01-15 10:31 | Outpatient (BNVA) | payer MEDICARE, OTHER, SELFPAY | PROVIDERS: PCP Family Medicine; Visit Provider Nurse Practitioner Family | DX: R55 Syncope and collapse (principal); Z87.891 Personal history of nicotine dependence; Z98.890 Other specified postprocedural states; Z95.818 Presence of other cardiac implants and grafts | CPT/HCPCS: 99213 ==

== ENCOUNTER 2022-01-16 08:01 | Outpatient (CLI) | payer MEDICARE, OTHER, SELFPAY ==
--- NOTE | 2022-01-16 08:30 | USCV_ITS ---
Valencia Tang Age: 81 Gender: F : 1940 Exam Date: 01/16/2022 08:17 Ordering Phys: Allan Molina MD (Andy) ([email or web address] [place]) Technologist: Libia Leo [place] [facility]ication: SYNCOPE Risk Factors: Unknown Previous Vascular Surgery: LOOP RERECORDER. Right Brachial BP: / Left Brachial BP: / Right Left Velocity (cm/s) Spectral Plaque Velocity (cm/s) Spectral Plaque Syst/Diast Broadening Syst/Diast Broadening 92.30/ 16.30 Prox CCA 71.20 / 10.60 63.40/ 14.40 Mid CCA 101.60/ 17.90 75.00/ 9.60 Distal CCA 104.60/ 20.90 / Prox ICA 100.20/ 28.40 / Mid ICA 81.20 / 17.90 / Distal ICA 96.40 / 13.50 140.40 ECA 136.00 ICA/CCA 0.99 Antegrade Vertebral Antegrade 67.30/ 17.10 cm/s 52.00/ 10.60 cm/s Bi Subclavian Tri 79.10 115.7 0 FINDINGS Moderate diffuse dense irregular plaques at the bifurcations bilaterally. No Doppler flow signals in the right internal carotid artery. Intimal thickening and minimal plaques in the common carotid arteries bilaterally Antegrade flow in the vertebral arteries bilaterally Normal Doppler flow velocities in the external carotid , vertebral and subclavian arteries bilaterally CONCLUSIONS 1. 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 2. Moderate diffuse dense irregular plaques at the bifurcations bilaterally, suggesting less than 50% stenosis. 3. Intimal thickening and minimal plaques in the common carotid arteries bilaterally Dr Juanjo Dooley MD [facility] (Electronically Signed) Final Date: 16 January 2022 18:45 S
== END 2022-01-16 08:02 | disposition home or self-care (01) ==
LOC: RAD 08:02
PROVIDERS: PCP Family Medicine; Visit Provider Thoracic Surgery (Cardiothoracic Vascular Surgery)
DX: I65.23 Occlusion and stenosis of bilateral carotid arteries (principal); R55 Syncope and collapse
CPT/HCPCS: 93880

== ENCOUNTER → 2022-02-05 08:53 | Outpatient (BNVA) | payer MEDICARE, OTHER, SELFPAY | PROVIDERS: PCP Family Medicine; Visit Provider Family Medicine | DX: E11.22 Type 2 diabetes mellitus with diabetic chronic kidney disease (principal); N18.4 Chronic kidney disease, stage 4 (severe); E78.5 Hyperlipidemia, unspecified; I10 Essential (primary) hypertension | CPT/HCPCS: 80053; 80061; 83036 ==

== ENCOUNTER → 2022-03-30 14:29 | Outpatient (BNVA) | payer MEDICARE, OTHER, SELFPAY | PROVIDERS: PCP Family Medicine; Visit Provider Internal Medicine Cardiovascular Disease | DX: I12.9 Hypertensive chronic kidney disease with stage 1 through stage 4 chronic kidney disease, or unspecified chronic kidney disease (principal); E11.22 Type 2 diabetes mellitus with diabetic chronic kidney disease; N18.4 Chronic kidney disease, stage 4 (severe); Z87.891 Personal history of nicotine dependence; Z79.84 Long term (current) use of oral hypoglycemic drugs | CPT/HCPCS: 99214 ==

== ENCOUNTER → 2022-04-24 07:59 | Outpatient (BNVA) | payer MEDICARE, OTHER, SELFPAY | PROVIDERS: PCP Family Medicine; Visit Provider Internal Medicine Cardiovascular Disease | DX: Z45.09 Encounter for adjustment and management of other cardiac device (principal) | CPT/HCPCS: 93291 ==

== ENCOUNTER → 2022-08-06 08:27 | Outpatient (BNVA) | payer MEDICARE, OTHER, SELFPAY | PROVIDERS: PCP Family Medicine; Visit Provider Family Medicine | DX: E11.22 Type 2 diabetes mellitus with diabetic chronic kidney disease (principal); N18.4 Chronic kidney disease, stage 4 (severe) | CPT/HCPCS: 80053; 83036 ==

== ENCOUNTER → 2022-10-28 07:53 | Outpatient (BNVA) | payer MEDICARE, OTHER, SELFPAY | PROVIDERS: PCP Family Medicine; Referring Provider Family Medicine; Visit Provider Dermatology | DX: D48.9 Neoplasm of uncertain behavior, unspecified (principal); L57.0 Actinic keratosis | CPT/HCPCS: 88305 ==

== ENCOUNTER 2022-11-20 06:17 | Emergency (ER) | payer MEDICARE, OTHER, SELFPAY ==
[2022-11-20] VITALS (108 sets, daily range): BP systolic 79–176; BP diastolic 37–82; PULSE 68–78; RESP 12–27; TEMP 35.8–35.9; O2SAT 91–100; BMI 21.6
[2022-11-20] MEDS: LORazepam 2 mg/mL INJ 1 mL IVP (06:33)
[2022-11-20 06:35] LABS: Glucose Point of Care 221 mg/dL (70-110)
[2022-11-20] MEDS: vecuronium 10 mg SDV IVP (06:35)
[2022-11-20] MEDS: etomidate 2 mg/mL INJ SDV 10 mL 20 MG IVP (06:35)
--- NOTE | 2022-11-20 06:41 | CTR_ITS ---
PROCEDURE INFORMATION: Exam: CT Cervical Spine Without Contrast Exam date and time: 11/20/2022 7:10 AM Age: 82 years old Clinical indication: Injury or trauma; Fall; Unconscious TECHNIQUE: Imaging protocol: Computed tomography of the cervical spine without contrast. Radiation optimization: All CT scans at this facility use at least one of these dose optimization techniques: automated exposure control; mA and/or kV adjustment per patient size (includes targeted exams where dose is matched to clinical indication); or iterative reconstruction. Other protocol: This patient has received 4 known CTs and 0 known cardiac nuclear medicine studies in the 12 months prior to the current study. COMPARISON: CT cervical spin wo con* [id number] 12/03/2021 11:25 AM RADIATION DOSE METRICS: Total DLP (mGy-cm): 194 FINDINGS: Tubes, catheters and devices: Endotracheal and orogastric tubes noted. The endotracheal tube cuff is inflated below the larynx. Bones/joints: Spinal alignment is normal. Vertebral body height is maintained in the cervical spine. There is a subtle age-indeterminate compression fracture at T3. There is mild multilevel facet spondylosis. No acute cervical spine fracture. No severe spinal stenosis. Lungs: Lung apices are clear. Vasculature: There is moderate atherosclerotic disease of the carotid arteries bilaterally. Soft tissues: Soft tissues in the neck and thoracic inlet are unremarkable. CT/CT cervical spin wo con* [id number] IMPRESSION: 1. Mild age-indeterminate T3 compression fracture. 2. No acute fracture in the cervical spine.
--- NOTE | 2022-11-20 06:41 | CTR_ITS ---
PROCEDURE INFORMATION: Exam: CT Head Without Contrast Exam date and time: 11/20/2022 7:10 AM Age: 82 years old Clinical indication: Injury or trauma; Fall; Unconscious TECHNIQUE: Imaging protocol: Computed tomography of the head without contrast. Radiation optimization: All CT scans at this facility use at least one of these dose optimization techniques: automated exposure control; mA and/or kV adjustment per patient size (includes targeted exams where dose is matched to clinical indication); or iterative reconstruction. Other protocol: This patient has received 4 known CTs and 0 known cardiac nuclear medicine studies in the 12 months prior to the current study. COMPARISON: CT head wo con* [id number] 12/03/2021 11:22 AM RADIATION DOSE METRICS: Total DLP (mGy-cm): 1128.33 FINDINGS: Brain: There is mild diffuse cerebral atrophy. There is no significant mass effect or midline shift. There is no acute intracranial hemorrhage. Cerebral ventricles: There is no significant ventricular dilation. The basal cisterns are unremarkable. Paranasal sinuses: The paranasal sinuses are clear. Mastoid air cells: The mastoid air cells are clear. Bones/joints: The calvarium is intact. Soft tissues: The visible extracranial soft tissues are unremarkable. CT/CT head wo con* [id number] IMPRESSION: No acute intracranial abnormality.
--- NOTE | 2022-11-20 06:41 | XRR_ITS ---
PROCEDURE INFORMATION: Exam: XR Chest Exam date and time: 11/20/2022 6:45 AM Age: 82 years old Clinical indication: Cough and dyspnea; Additional info: Dyspnea/cough TECHNIQUE: Imaging protocol: Radiologic exam of the chest. Views: 1 view. COMPARISON: CR XR ribs LT mn 3V w CXR1V [id number] 12/03/2021 11:25 AM FINDINGS: Tubes, catheters and devices: The endotracheal tube is appropriately positioned in the distal thoracic trachea with the tip above the shan. The NG tube tip lies 4 cm beyond the diaphragmatic hiatus. Lungs: Lungs are clear. Pleural spaces: There is no pleural effusion or pneumothorax. Heart/Mediastinum: There is mild enlargement of the cardiac silhouette. Bones/joints: Unremarkable. XR/XR chest 1V portable [id number] IMPRESSION: 1. Satisfactory endotracheal tube position. 2. Lungs clear. 3. NG tube tip 4 cm beyond the diaphragmatic hiatus. The tube should be advanced another 10 cm for ideal position.
--- NOTE | 2022-11-20 06:42 | ECG_ITS ---
[facility] Test Date: 2022-11-20 Pat Name: Valencia Tang Department: Room: Gender: Female Manager User Interface: : 1940 Requested By: Mauricio Dennison Order Number: [id number] Jakob MD: Ruy Akbar M.D. Measurements Intervals [place] Rate: 73 P: 10 [place]: 153 QRS: 47 QRSD: 98 T: 16 QT: 413 QTc: 456 Interpretive Statements SINUS RHYTHM WITH SINUS ARRHYTHMIA NONSPECIFIC T-WAVE ABNORMALITY Compared to ECG 12/03/2021 10:51:07 T-wave abnormality now present Sinus bradycardia no longer present Electronically Signed On 11-20-2022 16:19:15 FILER FINISH by Ruy Akbar M.D. [id number]
[2022-11-20 07:05] LABS: Alanine Aminotransferase 21 U/L (0-33); Albumin Level 4.2 g/dL (3.5-5.2); Alkaline Phosphatase 83 U/L (35-105); Anion Gap 18.5 (5-19); Aspartate Amino Transferase 32 U/L (0-32); Blood Urea Nitrogen 21 mg/dL (8-23); Calcium 9.4 mg/dL (8.5-10.5); Carbon Dioxide 23 mmol/L (22-29); Chloride 101 mmol/L (98-107); Creatine Phosphokinase 47 U/L (26-192); Globulin 2.7 g/dL (1.3-4.6); Glucose 219 mg/dL (65-115); Osmolality Calculated 296 mOsm/kg (285-295); Potassium 4.5 mmol/L (3.5-5.1); Sodium 138 mmol/L (136-145); Total Bilirubin 0.4 mg/dL (0.15-1.2); Total Protein 6.9 g/dL (6.6-8.7); Troponin(5th) Baseline 18 ng/L (0-10)
[2022-11-20 07:06] LABS: Add Urine Microscopic? NO; Charge for UA Resulting for Rev
[2022-11-20 07:14] LABS: Bilirubin Urine Neg (Negative); Blood Urine Neg (Negative); Glucose Urine UA 2+ (Normal); Ketones Urine Negative (Negative); Leukocyte Esterase Urine Negative (Negative); Nitrate Urine Negative (Negative); Protein Urine Neg (Negative); Specific Gravity, Urine 1.005 (1.005-1.030); Urine Appearance Clear (CLEAR); Urine Color Straw (Yellow); Urobilinogen Urine Neg (Negative); pH Urine 7 (5-7)
[2022-11-20 07:21] LABS: Lactic Sepsis W/Reflex 2.8 mmol/L (0.5-2.2)
[2022-11-20] MEDS: sodium chlor 0.9% + KCl 20 mEq 20 MEQ/1,000 ML BAG 125 MEQ IV (07:31)
--- NOTE | 2022-11-20 07:40 | CT_ITS ---
WS: [id number] CTA HEAD AND NECK TECHNIQUE: Contrast enhanced CTA of the head and neck with coronal and sagittal reformatted images an d maximum intensity projection (MIP) images. NASCET criteria utilized. CLINICAL INFORMATION: ams/after fall COMPARISON: None. DLP: 419.[address] scans at [facility] use at least one of these dose optimization techniques: automated e xposure control; mA and/or kV adjustment per patient size (includes targeted exams where dose is matc hed to clinical indication); or iterative reconstruction. FINDINGS: RIGHT: RIGHT common carotid artery is patent. Densely calcified plaque RIGHT carotid bulb extending i nto the ICA with stenosis measuring approximately 60-70%. RIGHT ICA is patent to the skull base. Dens e cavernous carotid calcification. Normal vascularity to the SINAN and MCA territory. Patent anterior c ommunicating artery. LEFT: LEFT common carotid artery is patent. Dense calcified atheromatous plaque LEFT carotid bulb ext ending into the ICA. Mild stenosis LEFT proximal ICA measuring less than 50%. LEFT ICA is patent to t he skull base. Densely calcified cavernous carotid calcification. Normal vascularity to the SINAN and L EFT MCA territory. LEFT dominant vertebral artery. Smaller but patent RIGHT vertebral artery. Normal vascularity to the LIVESTOCK BRANDS INSPECTOR territory bilaterally. No evidence of proximal flow limiting stenosis. Endotracheal tube with tip just above the shan. Enteric tube partially visualized. Lung apices are well aerated. Normal thyroid gland. Mastoid air cells are well aerated. Paranasal sinuses are well ae rated. Fluid in the posterior nasopharynx consistent with recent intubation. Normal parapharyngeal fa t. Aortic arch calcification.Mild spondylitic changes cervical spine. CT/CT angio headneck* [id number] IMPRESSION: 1. Densely calcified RIGHT carotid bulb extending into the ICA with irregular plaque. Stenosis measures approximately 60-70%. Reformatted images are pending. RIGHT ICA remains patent to the skull base. 2. Calcified atheromatous plaque LEFT carotid bulb extending into the ICA with less than 50% stenosis. LEFT ICA is patent to the skull base. 3. LEFT dominant vertebral artery. Both vertebral arteries are patent. Basilar artery is patent. 4. Normal vascularity to the SINAN and MCA territories bilaterally. Normal vascu larity to the LIVESTOCK BRANDS INSPECTOR territory via bilaterally. 5. No flow-limiting intracranial stenosis. 6. Partially visualized atelectasis in the LEFT posterior medial lung. 7. Aortic arch calcification. 8. Endotracheal tube with tip just above the shan. Notified Mauricio Rincon DO at 11/20/2022 9:17 AM. Addendum will be issued when reformatted 3-D images obtained.
--- NOTE | 2022-11-20 07:46 | W.ED.AMS ---
HPI - Altered Mental Status General: Chief Complaint: Altered Mental Status Stated Complaint: UNRESPONSIVE/FALL Time Seen by Provider: 11/20/22 06:41 Source: patient History of Present Illness: 82-year-old female presents to the emergency room altered status nonresponsive via EMS. Family later arrived and reported that sometime between 4-5 o'clock she was up doing her normal thing brushing her hair, normal morning routine and told her that she was lightheaded and dizzy he advised her to sit down for bed and rest she said the bathroom she passed out hit the of the right side of her face on the edge of the stool. He evidently observed her for a while try to get her up before calling family and ultimately EMS was called. From what we gather there was about a 1 hour gap between when she fell and when EMS was called. She arrived here at 618. On arrival here she is obtunded with sonorous respirations with a nasopharyngeal airway in place. Her left arm is stiff her right arm is flaccid she has bilateral upgoing Babinski's. She is nonresponsive to painful stimuli. Decision was made to intubate emergently due to her presenting condition. Her Is[place]oro Coma Scale is 4. EMS administered labetalol in route by air the director organizational had thought he had given Narcan. Her blood pressure on presentation initially was [id number] systolic after period of time her blood pressure raised significantly to 170s. EMS did not report any vomiting is no report of any chest pain or discomfort prior to this episode. MD complaint: decreased responsiveness Onset (ago): hour(s) Review of Systems General: Reports: ROS unobtainable due to endotracheal tube and ROS unobtainable due to mental status [facility] PFSH: Medical History CKD (chronic kidney disease), stage IV Coronary artery disease Dyslipidemia Essential hypertension GERD (gastroesophageal reflux disease) History of nonmelanoma skin cancer Nasal lesion Shortness of breath Type 2 diabetes mellitus, without long-term current use of insulin Surgical History H/O eye surgery H/O heart artery stent H/O tubal ligation Family History Other Arthritis CAD (coronary artery disease) Diabetes Social History Smoking and tobacco status: never smoked Quit status (tobacco): has quit using tobacco Year quit tobacco: 1955 Former quit date comment: Smoked 1 pack per month Alcohol intake: never Special srikanth needs: No Agree to transfusion: No Physical Exam HENMT: COMMON NORMALS: normocephalic HEAD & SCALP: normocephalic OTHER: Superficial abrasion on the right supraorbital ridge and the zygomatic arch no laceration pupils sluggish Resp: EFFORT & INSPECTION: Yes abnormal respiratory pattern, Yes labored, Yes grunting and Yes other (Sonorous) Cardio: COMMON NORMALS: regular rate and regular rhythm RATE: regular rate RHYTHM: regular rhythm HEART SOUNDS: Murmur heart sound present GI: AUSCULTATION: Yes normoactive bowel sounds PALPATION: No Tenderness to palpation present (GI) and No Guarding due to palpation present (GI) Extremity: COMMON NORMALS: no clubbing, cyanosis or edema and no pedal edema Neuro: ISIDORO COMA SCALE: document GCS findings Isidoro coma scale eye opening: None [place] coma scale verbal response: None [place] coma scale motor response: Extension [place] coma scale total score: 4 PLANTAR REFLEX: upgoing (positive Babinski): bilateral Procedures Intubation Time out performed: Yes sedative: Etomidate paralytic: Rocuronium Laryngoscope: Bette ET Tube Size: 8 ET Tube Uncuffed: Yes Tube Secured Depth (cm): 22 Tube Secured Location: teeth Tube Placement Confirmation: visualized tube passing through cords, equal breath sounds bilaterally, no breath sounds over epigastrium and confirmation by capnometry Patient Tolerated Procedure: well Intubation Complications: none Course Vital Signs: Vital signs: Vital Signs Temperature 96.4 F L 11/20/22 12:04 Pulse Rate 75 11/20/22 15:15 Respiratory Rate 17 11/20/22 15:15 Blood Pressure 141/55 11/20/22 15:15 Pulse Oximetry 100 11/20/22 15:15 Oxygen Delivery Me thod 11/20/22 07:35 Oxygen Flow Rate 4 11/20/22 06:18 Fraction of Inspir ed Oxygen 40 11/20/22 12:45 MDM - Altered Mental Status Medical Decision Making Patient presents in acute respiratory distress hypoxic and hypotensive. Patient is nonresponsive is a GCS of 3 on arrival. It emergently intubated with RSI. First troponin delta is positive for +19. Echocardiogram showed EF of 50%. She was found collapsed. CT the head was negative. Uncertain of the etiology of her deterioration appears to be acute coronary syndrome. Patient treated as for above will transfer to [place] for further evaluation and critical care. COVID testing is pending Medical Records I reviewed the patient's medical records. Lab Data I reviewed the patient's lab results. 11/20/22 06:21 11/20/22 06:21 Radiology Impressions Cervical Spine CT 11/20/22 06:41 IMPRESSION: 1. Mild age-indeterminate T3 compression fracture. 2. No acute fracture in the cervical spine. Chest X-Ray 11/20/22 06:41 IMPRESSION: 1. Satisfactory endotracheal tube position. 2. Lungs clear. 3. NG tube tip 4 cm beyond the diaphragmatic hiatus. The tube should be advanced another 10 cm for ideal position. Head CT 11/20/22 06:41 IMPRESSION: No acute intracranial abnormality. Head/Neck CTA 11/20/22 07:40 IMPRESSION: 1. Densely calcified RIGHT carotid bulb extending into the ICA with irregular plaque. Stenosis measures approximately 60-70%. Reformatted images are pending. RIGHT ICA remains patent to the skull base. 2. Calcified atheromatous plaque LEFT carotid bulb extending into the ICA with less than 50% stenosis. LEFT ICA is patent to the skull base. 3. LEFT dominant vertebral artery. Both vertebral arteries are patent. Basilar artery is patent. 4. Normal vascularity to the SINAN and MCA territories bilaterally. Normal vascularity to the COLLECTION TELLER territory via bilaterally. 5. No flow-limiting intracranial stenosis. 6. Partially visualized atelectasis in the LEFT posterior medial lung. 7. Aortic arch calcification. 8. Endotracheal tube with tip just above the shan. Notified Mauricio Rincon DO at 11/20/2022 9:17 AM. Addendum will be issued when reformatted 3-D images obtained. Laboratory Results WBC 10.5 10^3/uL (4.0-10.0) H 11/20/22 08:03 Corrected WBC Cancelled 11/20/22 06:21 RBC 4.23 10^6/uL (4.1-5.3) 11/20/22 08:03 Hgb 12.7 g/dL (11.5-15.3) 11/20/22 08:03 Hct 40.2 % (37.0-47.0) 11/20/22 08:03 MCV 95.0 fl (81-99) 11/20/22 08:03 MCH 30.0 pg (28.0-34.0) 11/20/22 08:03 MCHC 31.6 g/dL (30.0-36.0) 11/20/22 08:03 RDW 12.5 % (12.1-15.1) 11/20/22 08:03 Plt Count 217 10^3/cmm (130-400) 11/20/22 08:03 MPV 9.1 fL (7.4-10.4) 11/20/22 08:03 Gran % Cancelled 11/20/22 06:21 Neut % (Auto) 81.4 % 11/20/22 08:03 Lymph % (Auto) 12.4 % 11/20/22 08:03 [place] % (Auto) 5.4 % 11/20/22 08:03 Eos % (Auto) 0.4 % 11/20/22 08:03 Baso % (Auto) 0.2 % 11/20/22 08:03 Neut # (Auto) 8.52 10^3/uL (1.8-7.7) H 11/20/22 08:03 Lymph # (Auto) 1.3 10^3/uL (0.8-4.8) 11/20/22 08:03 [place] # (Auto) 0.6 10^3/uL (0.2-0.9) 11/20/22 08:03 Eos # (Auto) 0.0 10^3/uL (0.0-0.8) 11/20/22 08:03 Baso # (Auto) 0.0 10^3/uL (0.0-0.1) 11/20/22 08:03 Absolute Gran (auto) Cancelled 11/20/22 06:21 Nucleated RBC % (auto) 0 % 11/20/22 08:03 Nucleated RBCs # 0.0 /100WBC 11/20/22 08:03 Specimen Type Arterial 11/20/22 07:43 Sample Site Brachial, right 11/20/22 07:43 ABG pH 7.50 (7.35-7.45) H 11/20/22 07:43 ABG pCO2 31.2 mmHg (35-45) L 11/20/22 07:43 ABG pO2 330.0 mmHg (80.0-100.0) H 11/20/22 07:43 ABG HCO3 24.1 mmol/L (22-26) 11/20/22 07:43 ABG O2 Saturation 99.6 11/20/22 07:43 ABG Base Excess 1.5 mmol/L (-2.0-2.0) 11/20/22 07:43 Frankie Test N/a 11/20/22 07:43 A-a O2 Gradient 44.4 mmHg (5-10) H 11/20/22 07:43 Hematocrit 39.2 % (37-47) 11/20/22 07:43 Hgb O2 Saturation 98.6 % (95-100) 11/20/22 07:43 Carboxyhemoglobin 0.3 %THgb (0.4-20.1) L 11/20/22 07:43 Methemoglobin 0.8 % (0.4-1.5) 11/20/22 07:43 Total Hemoglobin 12.8 g/dL (12-16) 11/20/22 07:43 Sodium 138.0 mmol/L (131-143) 11/20/22 07:43 Potassium 3.8 mmol/L (3.5-5.0) 11/20/22 07:43 Glucose 252.0 mg/dL (70-115) H 11/20/22 07:43 Ionized Calcium 1.2 mmol/L (1.1-1.4) 11/20/22 07:43 O2 Delivery Device Vent 11/20/22 07:43 FiO2 100.0 % 11/20/22 07:43 Tidal Volume 0.35 11/20/22 07:43 PEEP 8.0 cmH20 11/20/22 07:43 Qa Analyst ID Amh 11/20/22 07:43 Sodium 138 mmol/L (136-145) 11/20/22 06:21 Potassium 4.5 mmol/L (3.5-5.1) 11/20/22 06:21 Chloride 101 mmol/L (98-107) 11/20/22 06:21 Carbon Dioxide 23 mmol/L (22-29) 11/20/22 06:21 Anion Gap 18.5 (5-19) 11/20/22 06:21 BUN 21 mg/dL (8-23) 11/20/22 06:21 Creatinine 1.5 mg/dL (0.5-0.9) H 11/20/22 06:21 GFR Calculation Not Reportable 11/20/22 06:21 Glucose 219 mg/dL (65-115) H 11/20/22 06:21 POC Glucose 221 mg/dL (70-110) H 11/20/22 06:31 Calculated Osmolality 296 mOsm/kg (285-295) H 11/20/22 06:21 Lactic Acid 2.8 mmol/L (0.5-2.2) H 11/20/22 06:58 Lactic Acid (Sepsis) 2.4 mmol/L (0.5-2.2) H 11/20/22 09:59 Calcium 9.4 mg/dL (8.5-10.5) 11/20/22 06:21 Total Bilirubin 0.4 mg/dL (0.15-1.2) 11/20/22 06:21 AST 32 U/L (0-32) 11/20/22 06:21 ALT 21 U/L (0-33) 11/20/22 06:21 Alkaline Phosphatase 83 U/L (35-105) 11/20/22 06:21 Creatine Kinase 47 U/L (26-192) 11/20/22 06:21 Troponin T Baseline 18 ng/L (0-10) H 11/20/22 06:21 Troponin T 120 Minute 37.98 ng/L (0-10) H 11/20/22 08:25 Delta Troponin T 19.98 ABS# (0-10) H* 11/20/22 08:25 Troponin T Hi Sens 6Hr 36.58 ng/L (0-10) H 11/20/22 12:19 Troponin T Hi Sens 6Hr Delta 18.58 ng/L (0-12) H* 11/20/22 12:19 Total Protein 6.9 g/dL (6.6-8.7) 11/20/22 06:21 Albumin 4.2 g/dL (3.5-5.2) 11/20/22 06:21 Globulin 2.7 g/dL (1.3-4.6) 11/20/22 06:21 Urine Color Straw (Yellow) 11/20/22 07:00 Urine Appearance Clear (CLEAR) 11/20/22 07:00 Urine pH 7 (5-7) 11/20/22 07:00 Ur Specific Theodore 1.005 (1.005-1.030) 11/20/22 07:00 Urine Protein Neg (Negative) 11/20/22 07:00 Urine Glucose (UA) 2+ (Normal) H 11/20/22 07:00 Urine Ketones Negative (Negative) 11/20/22 07:00 Urine Blood Neg (Negative) 11/20/22 07:00 Urine Nitrate Negative (Negative) 11/20/22 07:00 Urine Bilirubin Neg (Negative) 11/20/22 07:00 Urine Urobilinogen Neg mg/dL (Negative) 11/20/22 07:00 Ur Leukocyte Esterase Negative (Negative) 11/20/22 07:00 Coronavirus 229E (PCR) Not detected (NOT DETECT) 11/20/22 11:50 SARS-CoV-2 (PCR) Not detected (NOT DETECT) 11/20/22 11:50 Critical Care Time Critical Care Time: Critical Care Time: Yes Total Critical Care Time: 45 Attestation: The high probability of a clinically significant, sudden or life threatening deterioration of the patient's cardiovascular respiratory system(s) required my full and direct attention, intervention and personal management. The critical care time is as shown. This time is in addition to time spent performing any reported procedures but includes the following: [x] Data and vital sign review and interpretation [x] Patient assessment, examination and intervention [x] Documentation [x] Medication orders and management Discharge Plan Discharge Patient Disposition: Xfer Short-Term Hosp Clinical Impression: Altered mental status, CKD (chronic kidney disease), stage IV, Type 2 diabetes mellitus, without long-term current use of insulin Condition: Stable Referrals: Gilda Caicedo DO [Primary Care Provider] - Coding Level of Care Code ED Incident Response Consultant for Anahy Carr
--- NOTE | 2022-11-20 07:46 | PC.PHAR ---
pt unable to verify medications -pts family states the pt takes care of her own medications-medications entered are from the med bottles that were brought in except for imiquimod ext med history shows last filled 11/16/22 30d/s
--- NOTE | 2022-11-20 07:52 | PC.NURSE ---
This nurse updated the family on what we did and what we know of at this moment. Patient's family stated that the patient was awake around [id number] and that she was brushing her hair, when she stated that she felt dizzy. She was told to sit down, which is when she fell. Family member stated that when she fell, she hit the stool but that was unwitnessed.
[2022-11-20 07:54] LABS: ABG PCO2 31.2 mmHg (35-45); Alveolar-Arterial Oxygen Gradi 44.4 mmHg (5-10); Arterial Blood Gas Hematocrit 39.2 % (37-47); Base Excess ABG 1.5 mmol/L (-2.0-2.0); Blood Gas Operator Identificat AMH; Blood Gas Sample Site Brachial, right; Blood Gas Sample Type Arterial; Blood Gas Tidal Volume 0.35; Carboxyhemoglobin 0.3 %THgb (0.4-20.1); HCO3 ABG 24.1 mmol/L (22-26); HGB O2 Sat 98.6 % (95-100); Ionized Calcium Level - ABG 1.2 mmol/L (1.1-1.4); Methemoglobin 0.8 % (0.4-1.5); Oxygen Device VENT; Oxygen Saturation ABG 99.6; Potassium Level - ABG 3.8 mmol/L (3.5-5.0); Total Hemoglobin 12.8 g/dL (12-16)
[2022-11-20 08:09] LABS: Basophils % 0.2 %; Eosinophils % 0.4 %; Hematocrit 40.2 % (37.0-47.0); Hemoglobin 12.7 g/dL (11.5-15.3); Lymphocytes # 1.3 10^3/uL (0.8-4.8); Lymphocytes % 12.4 %; Mean Corpuscular HGB Conc 31.6 g/dL (30.0-36.0); Mean Platelet Volume 9.1 fL (7.4-10.4); Monocytes # 0.6 10^3/uL (0.2-0.9); Monocytes % 5.4 %; Neutrophils # 8.52 10^3/uL (1.8-7.7); Neutrophils % 81.4 %; Nucleated Red Blood Cells % 0 %; Platelet Count 217 10^3/cmm (130-400); Red Blood Count 4.23 10^6/uL (4.1-5.3); Red Cell Distribution Width 12.5 % (12.1-15.1); White Blood Count 10.5 10^3/uL (4.0-10.0)
[2022-11-20 08:50] LABS: Reflex Lactate Order REFLEX LACTIC ORDERD
[2022-11-20 08:52] LABS: Troponin 5 2HR 37.98 ng/L (0-10)
[2022-11-20] MEDS: iohexol 350 mg/mL 500 mL Btl (per mL) IV (08:52)
[2022-11-20 08:58] LABS: Troponin 5 2HR Delta 19.98 ABS# (0-10)
--- NOTE | 2022-11-20 08:58 | ECG_ITS ---
[facility] Test Date: 2022-11-20 Pat Name: Valencia Tang Department: Room: Gender: Female Cmm Technician: : 1940 Requested By: Mauricio Dennison Order Number: [id number] Jakob MD: Ruy Akbar M.D. Measurements Intervals [place] Rate: 77 P: 62 PA: 158 QRS: 53 QRSD: 98 T: 44 QT: 437 QTc: 496 Interpretive Statements SINUS RHYTHM Compared to ECG 11/20/2022 06:24:47 Sinus arrhythmia no longer present T-wave abnormality no longer present Electronically Signed On 11-20-2022 16:22:42 CHILD CARE DEVELOPMENT SPECIALIST by Ruy Akbar M.D. [email or web address] general [email or web address] Nikomedina [email or web address]/store/[id number]
[2022-11-20] MEDS: heparin 5,000 unit/mL INJ 1 mL 4000 UNIT IVP (09:34)
[2022-11-20] MEDS: aspirin 81 mg Chew Tablet 324 MG NG-TUBE (09:38)
[2022-11-20] MEDS: nitroglycerin drip 50 MG/250 ML PREMIX IV (09:38)
--- NOTE | 2022-11-20 09:38 | USCV_ITS ---
Valencia Tang Age: 82 Gender: F : 1940 Exam Date: 11/20/2022 10:17 Ordering Phys: Mauricio Rincon DO Technologist: CHERRY Exam Location: [facility] [place] Indication: syncope, unresponsive BP: / HR: 73 Rhythm: Sinus Technical Quality: Technically difficult study MEASUREMENTS (Male / Female) Normal Values 2D ECHO LV Diastolic Diameter PLAX 3.6 cm 4.2 - 5.9 / 3.9 - 5.3 cm LV Systolic Diameter PLAX 2.8 cm IVS Diastolic Thickness 0.6 cm 0.6 - 1.0 / 0.6 - 0.9 cm IVS Systolic Thickness 0.8 cm LVPW Diastolic Thickness 0.6 cm 0.6 - 1.0 / 0.6 - 0.9 cm LVPW Systolic Thickness 0.8 cm LVOT Diameter 2.4 cm LV Ejection Fraction 2D Teich 44.9 % LV Ejection Fraction MOD 2C 49.1 % LV Ejection Fraction 2C AL 48.8 % LA Diameter 2.6 cm IVC Diameter 1.0 cm M-MODE Aortic Annulus Diameter 3.2 cm LA Ao Ratio MM 0.7 MV E Point Septal Separation 0.8 cm DOPPLER AV Peak Velocity 85.0 cm/s LVOT Peak Velocity 67.0 cm/s AV Area Cont Eq vti 4.4 cm squared AV Area Cont Eq pk 3.5 cm squared MV Area PHT 2.5 cm squared Mitral E to A Ratio 0.6 MV E' Velocity 28.5 cm/s Mitral E to MV E' Ratio 10.4 Mitral E to LV E' Lateral Ratio 11.5 Mitral E to LV E' Septal Ratio 9.4 PV Peak Velocity 70.0 cm/s FINDINGS Left Ventricle This is a very technically difficult study. Echo contrast was used. The left ventricular size and function are likely within normal limits. The ejection fraction is about 50%. There were no obvious wall motion disturbances. Grade 1 diastolic function. Right Ventricle Right ventricle not well visualized. Right Atrium The right atrium is normal in size. Left Atrium The left atrium is normal in size. Mitral Valve Mitral valve not well visualized. Aortic Valve Aortic valve not well visualized. Tricuspid Valve Tricuspid valve not well visualized. Pulmonic Valve Pulmonic valve not well visualized. Pericardium Normal pericardium without effusion. Aorta Normal ascending aorta dimension. IVC Inferior vena cava not visualized. CONCLUSIONS This is a very technically difficult study. Echo contrast was used. The left ventricular size and function are likely within normal limits. The ejection fraction is about 50%. There were no obvious wall motion disturbances. Grade 1 diastolic function. Previous study done 02/01/2015 was a better quality study. There appears to be no significant change. Dr. Ruy Akbar MD (Electronically Signed) Final Date: 20 November 2022 16:01 S
[2022-11-20 10:20] LABS: Lactic Acid level (Lactate) 2.4 mmol/L (0.5-2.2)
--- NOTE | 2022-11-20 11:14 | PC.NURSE ---
Approx 0945 patient had 1200mL UO.
--- NOTE | 2022-11-20 12:42 | ECG_ITS ---
[facility] Test Date: 2022-11-20 Pat Name: Valencia Tang Department: Room: Gender: Female Vehicle Operator: : 1940 Requested By: Mauricio Dennison Order Number: [id number] Jakob MD: Ruy Akbar M.D. Measurements Intervals [place] Rate: 73 P: 60 [place]: 161 QRS: 72 QRSD: 85 T: 75 QT: 400 QTc: 441 Interpretive Statements SINUS RHYTHM NONSPECIFIC ST & T-WAVE ABNORMALITY Compared to ECG 11/20/2022 08:58:29 T-wave abnormality now present Electronically Signed On 11-20-2022 16:22:57 FUR MIXER by Ruy Akbar M.D. [email or web address] good samaritan hospitalPlures Technologies/store/[id number]
[2022-11-20 12:51] LABS: Troponin 5 6HR 36.58 ng/L (0-10)
[2022-11-20] MEDS: sodium chloride 0.9% 500 ML IV (12:52)
[2022-11-20 12:56] LABS: Troponin 5 6HR Delta 18.58 ng/L (0-12)
[2022-11-20 13:53] LABS: Adenovirus Not Detected (NOT DETECT); Chlamydia Pneumoniae Not Detected (NOT DETECT); Coronavirus 229E,HKU1,NL63,OC4 Not Detected (NOT DETECT); Human Metapneumovirus Not Detected (NOT DETECT); Human Rhinovirus/Enterovirus Not Detected (NOT DETECT); Influenza A Not Detected (NOT DETECT); Influenza A H1 Not Detected (NOT DETECT); Influenza A H1-2009 Not Detected (NOT DETECT); Influenza A H3 Not Detected (NOT DETECT); Influenza B Not Detected (NOT DETECT); Mycoplasma Pneumoniae Not Detected (NOT DETECT); Parainfluenza Virus Type 1 Not Detected (NOT DETECT); Parainfluenza Virus Type 2 Not Detected (NOT DETECT); Parainfluenza Virus Type 3 Not Detected (NOT DETECT); Parainfluenza Virus Type 4 Not Detected (NOT DETECT); Respiratory Syncytial Virus A Not Detected (NOT DETECT); Respiratory Syncytial Virus B Not Detected (NOT DETECT); SARS-COV-2 Not Detected (NOT DETECT)
--- NOTE | 2022-11-20 16:18 | PC.NURSE ---
versed and Fentanyl went with EMS for sedation.
== END 2022-11-20 15:30 | disposition short-term general hospital (02) ==
PROVIDERS: Emergency Provider Family Medicine; PCP Family Medicine
DX: R41.82 Altered mental status, unspecified (principal); E11.22 Type 2 diabetes mellitus with diabetic chronic kidney disease; I12.9 Hypertensive chronic kidney disease with stage 1 through stage 4 chronic kidney disease, or unspecified chronic kidney disease; N18.4 Chronic kidney disease, stage 4 (severe); I25.10 Atherosclerotic heart disease of native coronary artery without angina pectoris; E78.5 Hyperlipidemia, unspecified; Z87.891 Personal history of nicotine dependence; R09.02 Hypoxemia; I95.9 Hypotension, unspecified; Z20.822 Contact with and (suspected) exposure to COVID-19
CPT/HCPCS: 31500; 36415; 36416; 36600; 70450; 70496; 70498; 71045; 72125; 80051; 80053; 81003; 82330; 82550; 82805; 82962; 83605; 84484; 85025; 87635; 93005; 94002; 94799; 96365; 96366; 96375; 99291; C8929; J0171; J0282; J1644; J1953; J2060; J2250; J3010; J3480; J3490; J7040; J7050; Q9967

== ENCOUNTER → 2023-02-23 10:00 | Outpatient (BNVA) | payer MEDICARE, OTHER, SELFPAY | PROVIDERS: PCP Family Medicine; Visit Provider Family Medicine | DX: I10 Essential (primary) hypertension (principal); E11.9 Type 2 diabetes mellitus without complications | CPT/HCPCS: 80053; 80061; 82043; 83036; 85025 ==

== ENCOUNTER → 2023-05-18 10:18 | Outpatient (BNVA) | payer MEDICARE, OTHER, SELFPAY | PROVIDERS: PCP Family Medicine; Visit Provider Family Medicine | DX: E11.22 Type 2 diabetes mellitus with diabetic chronic kidney disease (principal); N18.4 Chronic kidney disease, stage 4 (severe) | CPT/HCPCS: 80053; 83036 ==

== ENCOUNTER → 2023-09-14 09:52 | Outpatient (BNVA) | payer MEDICARE, OTHER, SELFPAY | PROVIDERS: PCP Family Medicine; Visit Provider Family Medicine | DX: E11.22 Type 2 diabetes mellitus with diabetic chronic kidney disease (principal); N18.4 Chronic kidney disease, stage 4 (severe) | CPT/HCPCS: 80053; 83036 ==

== ENCOUNTER → 2023-12-02 14:44 | Outpatient (BNVA) | payer MEDICARE, OTHER, SELFPAY | PROVIDERS: PCP Family Medicine; Visit Provider Dermatology | DX: D48.5 Neoplasm of uncertain behavior of skin (principal); L57.0 Actinic keratosis; L82.1 Other seborrheic keratosis; L57.8 Other skin changes due to chronic exposure to nonionizing radiation; Z85.828 Personal history of other malignant neoplasm of skin | CPT/HCPCS: 11102; 17000; 69100; 99213 ==

== ENCOUNTER → 2023-12-28 07:52 | Outpatient (BNVA) | payer MEDICARE, OTHER, SELFPAY | PROVIDERS: PCP Family Medicine; Visit Provider Dermatology | DX: C44.222 Squamous cell carcinoma of skin of right ear and external auricular canal (principal) | CPT/HCPCS: 11643; 13152 ==

== ENCOUNTER → 2024-01-07 07:59 | Outpatient (BNVA) | payer MEDICARE, OTHER, SELFPAY | PROVIDERS: PCP Family Medicine; Visit Provider Dermatology | DX: Z48.02 Encounter for removal of sutures (principal) | CPT/HCPCS: 99212 ==

== ENCOUNTER → 2024-01-20 09:16 | Outpatient (BNVA) | payer MEDICARE, OTHER, SELFPAY | PROVIDERS: PCP Family Medicine; Visit Provider Family Medicine | DX: E11.22 Type 2 diabetes mellitus with diabetic chronic kidney disease (principal); N18.4 Chronic kidney disease, stage 4 (severe) | CPT/HCPCS: 80053; 80061; 82043; 83036; 85025 ==

== ENCOUNTER → 2024-02-08 07:49 | Outpatient (BNVA) | payer MEDICARE, OTHER, SELFPAY | PROVIDERS: PCP Family Medicine; Visit Provider Dermatology | DX: C44.612 Basal cell carcinoma of skin of right upper limb, including shoulder (principal); L82.1 Other seborrheic keratosis; D48.5 Neoplasm of uncertain behavior of skin; L57.0 Actinic keratosis; Z85.828 Personal history of other malignant neoplasm of skin | CPT/HCPCS: 11102; 17000; 99214 ==

== ENCOUNTER → 2024-07-13 15:34 | Outpatient (BNVA) | payer MEDICARE, OTHER, SELFPAY | PROVIDERS: PCP Family Medicine; Visit Provider Internal Medicine Cardiovascular Disease | DX: Z95.0 Presence of cardiac pacemaker (principal); I12.9 Hypertensive chronic kidney disease with stage 1 through stage 4 chronic kidney disease, or unspecified chronic kidney disease; N18.4 Chronic kidney disease, stage 4 (severe); E11.22 Type 2 diabetes mellitus with diabetic chronic kidney disease | CPT/HCPCS: 99213 ==

== ENCOUNTER → 2024-09-28 10:12 | Outpatient (BNVA) | payer MEDICARE, OTHER, SELFPAY | PROVIDERS: PCP Family Medicine; Visit Provider Family Medicine | DX: E11.22 Type 2 diabetes mellitus with diabetic chronic kidney disease (principal); N18.4 Chronic kidney disease, stage 4 (severe) | CPT/HCPCS: 80053; 83036; 85025 ==

== ENCOUNTER → 2024-12-27 09:05 | Outpatient (BNVA) | payer MEDICARE, OTHER, SELFPAY | PROVIDERS: PCP Family Medicine; Visit Provider Internal Medicine Cardiovascular Disease | DX: Z45.018 Encounter for adjustment and management of other part of cardiac pacemaker (principal) | CPT/HCPCS: 93296 ==

== ENCOUNTER → 2025-01-23 12:24 | Outpatient (BNVA) | payer MEDICARE, OTHER, SELFPAY | PROVIDERS: PCP Family Medicine; Visit Provider Internal Medicine Cardiovascular Disease | DX: R55 Syncope and collapse (principal); Z95.0 Presence of cardiac pacemaker; I12.9 Hypertensive chronic kidney disease with stage 1 through stage 4 chronic kidney disease, or unspecified chronic kidney disease; E11.22 Type 2 diabetes mellitus with diabetic chronic kidney disease; N18.4 Chronic kidney disease, stage 4 (severe); Z87.891 Personal history of nicotine dependence | CPT/HCPCS: 99214 ==

== ENCOUNTER → 2025-03-22 08:30 | Outpatient (BNVA) | payer MEDICARE, OTHER, SELFPAY | PROVIDERS: PCP Family Medicine; Visit Provider Family Medicine | DX: E11.22 Type 2 diabetes mellitus with diabetic chronic kidney disease (principal); N18.4 Chronic kidney disease, stage 4 (severe) | CPT/HCPCS: 80053; 80061; 83036; 85025 ==

== ENCOUNTER → 2025-09-18 09:15 | Outpatient (BNVA) | payer MEDICARE, OTHER, SELFPAY | PROVIDERS: PCP Family Medicine; Visit Provider Family Medicine | DX: E11.22 Type 2 diabetes mellitus with diabetic chronic kidney disease (principal); N18.4 Chronic kidney disease, stage 4 (severe); N18.32 Chronic kidney disease, stage 3b | CPT/HCPCS: 80053; 83036; 85025 ==